=== PATIENT | male | born 1995 | race Caucasian/White ===

== ENCOUNTER 2016-05-28 11:52 | Emergency (ER) | payer OTHER ==
[~2016-05-28] VITALS: Ht 167.6 cm; Wt 92.1 kg
[2016-05-28 11:53] VITALS: BP 165/83
[2016-05-28] MEDS ORDERED: FLUORESCEIN OPHTH 1 MG STRIP OS ONE (12:15)
[2016-05-28] MEDS ORDERED: TETRACAINE 0.5% OPHTH SOLN 4ML OS ONE (12:15)
[2016-05-28] MEDS ORDERED: ACUV0.45 OS (12:30)
[2016-05-28] MEDS ORDERED: TOBR3OPD OS (12:30)
== END 2016-05-28 12:51 | disposition home or self-care (01) ==
LOC: M ED 12:39
DX: H10.32 Unspecified acute conjunctivitis, left eye (principal)